=== PATIENT | male | born 1980 | race Hispanic/Latino ===

== ENCOUNTER 2024-03-19 04:13 | Emergency (ER) | payer SELFPAY ==
[2024-03-19 05:07] LABS: Absolute Basophils 0.1 K/uL (0-0.5); Absolute Monocytes 1.1 K/uL (0.1-1.3); Basophils % 0.7 % (0-1.3); Eosinophils % 0.2 % (0-4.4); Hematocrit 44.3 % (39.6-49.0); Hemoglobin 14.7 g/dL (13.6-17.9); Lymphocytes % 18.4 % (15.3-44.8); MCH 29.2 pg (27.0-35.0); MCHC 33.2 g/dL (32.0-36.0); MCV 88.1 fL (80-100); MPV 9.8 fL (7.6-11.3); Monocytes % 6.8 % (3.3-12.3); Neutrophils % 73.9 % (41.7-73.7); Nucleated Red Blood Cells % 0.1 % (0-0); Platelets 262 thou/uL (152-406); RBC Red Blood Cell Count 5.03 M/uL (4.33-5.43); Red Cell Distribution Width 14.3 % (12.1-15.2)
[2024-03-19 05:14] LABS: PT Prothrombin Time 11.3 SECONDS (9.4-12.5); PTT, Activated Partial Thromb 28.3 SECONDS (24.3-36.9); Protime INR 1.01
[2024-03-19 05:54] LABS: ALT/SGPT 56 U/L (16-61); AST/SGOT 20 U/L (15-37); Albumin 3.7 g/dL (3.4-5.0); Albumin/Globulin Ratio 1.1 (1.1-1.8); Alkaline Phosphatase 99 U/L (45-117); Anion Gap 8.8 mEq/L (5.0-15.0); BUN Blood Urea Nitrogen 11 mg/dL (7-18); Bicarbonate 28 mEq/L (21-32); Bilirubin Total 0.3 mg/dL (0.2-1.0); Globulin 3.5 g/dL (2.3-3.5); Glomerular Filtration Rate 111 ml/min (=/>90); Glucose Level 105 mg/dL (74-106); Potassium 3.8 mEq/L (3.5-5.1); Protein, Total 7.2 g/dL (6.4-8.2); Sodium Level 137 mEq/L (136-145)
[2024-03-19 05:55] LABS: Bilirubin Direct < 0.2 mg/dL (0-0.2); Bilirubin Indirect, Calculated 0.1 mg/dL (0.2-0.8)
[2024-03-19] MEDS ORDERED: MORPHINE 4 MG/ML SYR ONE (05:56)
[2024-03-19] MEDS ORDERED: ONDANSETRON 4 MG/2 ML VIAL ONE (05:56)
[2024-03-19] MEDS ORDERED: NA CHLORIDE 0.9% 1,000 ML ONE ×2 (05:57→07:27)
[2024-03-19] MEDS ORDERED: DIAZEPAM 5 MG TABLET ONE (05:57)
[2024-03-19 06:07] LABS: Sqamous Epithelial <5 /HPF (None Seen); Urine Bacteria None Seen /HPF (<20); Urine Bilirubin NEGATIVE (Negative); Urine Blood Negative (Negative); Urine Clarity Clear (Clear); Urine Color Light-Yellow (Yellow); Urine Culture Reflex Order NOT NEEDED; Urine Glucose NEGATIVE (Negative); Urine Ketones NEGATIVE (Negative); Urine Microscopic Reflex YN ORDER UMIC; Urine Mucus Slight /HPF (None Seen); Urine Nitrite NEGATIVE (Negative); Urine Protein TRACE (Negative); Urine RBC <5 /HPF (None Seen); Urine Urobilinogen Normal (Normal); Urine WBC <5 /HPF (<5); Urine pH 6.5 (5.0-7.0)
[2024-03-19 06:12] LABS: Barbiturates NEGATIVE (NEGATIVE); Benzodiazepines NEGATIVE (NEGATIVE); Cocaine POSITIVE (NEGATIVE); METHAMPHETAM NEGATIVE (NEGATIVE); Methadone NEGATIVE (NEGATIVE); Opiates NEGATIVE (NEGATIVE); Phencyclidine NEGATIVE (NEGATIVE); THC Cannibis NEGATIVE (NEGATIVE)
--- NOTE | 2024-03-19 09:51 | RAD REPORT ---
EXAM DESCRIPTION: CT - Soft Tissue Neck W/Contr - 03/19/2024 7:23 am CLINICAL HISTORY: The patient is 43 years old and is Male; hanging attempt, neck pain TECHNIQUE: Axial computed tomography images of the neck with intravenous contrast. Sagittal and c oronal reformatted images were created and reviewed. This CT exam was performed using one or more o f the following dose reduction techniques: automated exposure control, adjustment of the mA and/or kV according to patient size, and/or use of iterative reconstruction technique. COMPARISON: No relevant prior studies available. FINDINGS: Oropharynx: Unremarkable. No significant tonsillar enlargement. No peritonsillar abscess. Hypopharynx: Unremarkable. Larynx: Unremarkable. Normal epiglottis. Trachea: Unremarkable. Retropharyngeal space: Unremarkable. Submandibular/parotid glands: Unremarkable. Glands are normal in size. Thyroid: Unremarkable. No enlarged or calcified nodules. Bones/joints: No acute fracture. Soft tissues: Unremarkable. Vasculature: No acute findings. Lymph nodes: Unremarkable. No lymphadenopathy. Lung apices: Unremarkable as visualized. IMPRESSION: No acute finding. Electronically signed by: Eugene Amin MD 03/19/2024 07:11 AM CDT 8 Due to temporary technical issues with the PACS/Fluency reporting system, reports are being signed by the in house radiologist without review as a courtesy to ensure prompt reporting. The interpreting r adiologist is fully responsible for the content of the report.
--- NOTE | 2024-03-19 10:22 | RAD REPORT ---
EXAM DESCRIPTION: CT - Head C Spine Cap Wo Con - 03/19/2024 7:23 am CLINICAL HISTORY: The patient is 43 years old and is Male; hanging attempt TECHNIQUE: Axial computed tomography images of the head/brain and cervical spine without intravenous contrast. Sagittal and coronal reformatted images were created and reviewed. This CT exam was pe rformed using one or more of the following dose reduction techniques: automated exposure control, a djustment of the mA and/or kV according to patient size, and/or use of iterative reconstruction techn ique. COMPARISON: No relevant prior studies available. FINDINGS: Brain: Mild age related periventricular white matter microangiopathic changes. No hemorrhage. Ventricles: Unremarkable. No ventriculomegaly. Skull: No acute fracture. Sinuses: Unremarkable as visualized. No acute sinusitis. Mastoid air cells: Unremarkable as visualized. No mastoid fluid. Vertebrae: No acute cervical spine fracture visualized. Lateral alignment is maintained. Discs/spinal canal/neural foramina: No acute findings. No spinal canal stenosis. Soft tissues: Right parietal scalp swelling. Pleural space: No apical pneumothorax. * A single impression for all exams can be found at the end of this report EXAM DESCRIPTION: CT Chest, Abdomen and Pelvis Without Intravenous Contrast CLINICAL HISTORY: The patient is 43 years old and is Male; hanging attempt TECHNIQUE: Axial computed tomography images of the chest, abdomen and pelvis without intravenous con trast. Sagittal and coronal reformatted images were created and reviewed. This CT exam was perfor med using one or more of the following dose reduction techniques: automated exposure control, adjus tment of the mA and/or kV according to patient size, and/or use of iterative reconstruction technique . COMPARISON: No relevant prior studies available. FINDINGS: CHEST: Lungs: Dependent atelectasis in the bilateral lower lobes. Pleural space: Unremarkable. No significant effusion. No pneumothorax. Heart: Unremarkable. No cardiomegaly. No significant pericardial effusion. No significant c oronary artery calcifications. ABDOMEN: Liver: Unremarkable. Gallbladder and bile ducts: Calcified stone in the gallbladder fundus. No findings to suggest cho lecystitis. No ductal dilation. Pancreas: Unremarkable. No ductal dilation. Spleen: Unremarkable. No splenomegaly. Adrenals: Unremarkable. No mass. Kidneys and ureters: Punctate right nephrolithiasis. No hydronephrosis. Left kidney is unremarkab le. Stomach and bowel: No bowel dilatation or obstruction. No bowel wall thickening. PELVIS: Appendix: The visualized appendix is normal. No pericecal inflammation to suggest acute appendici tis. Bladder: Unremarkable. No stones. Reproductive: Unremarkable as visualized. CHEST, ABDOMEN and PELVIS: Intraperitoneal space: Unremarkable. No significant fluid collection. No free air. Bones/joints: Old left clavicle fracture. No acute sternal fracture. No sternoclavicular joint dislocation. No acute rib fracture visualized. Partial ankylosis right SI joint. No acute fracture in the pelvis or proximal femora. No hip dislocation. Bilateral L5 spondylolysis. No acute vertebral fracture visualized in the thoracic or lumbar spine. Soft tissues: Unremarkable. Vasculature: Unremarkable. No aortic aneurysm. Lymph nodes: Unremarkable. No enlarged lymph nodes. * A single impression for all exams can be found at the end of this report IMPRESSION: CT Head and Cervical Spine Without Intravenous Contrast: 1. No intracranial hemorrhage. No acute skull fracture. 2. Mild age related periventricular white matter microangiopathic changes. 3. No acute cervical spine fracture visualized. CT Chest, Abdomen and Pelvis Without Intravenous Contrast: 1. No acute intrathoracic or intra-abdominal injury identified. Study performed without IV contrast . 2. Cholelithiasis. 3. Additional non-emergent findings as above. Electronically signed by: Sita Rivera MD 03/19/2024 06:53 AM CDT [place] Due to temporary technical issues with the PACS/Fluency reporting system, reports are being signed by the in house radiologist without review as a courtesy to ensure prompt reporting. The interpreting r adiologist is fully responsible for the content of the report.
[2024-03-19] MEDS ORDERED: KETOROLAC 30 MG/ML INJ ONE (15:09)
[2024-03-19] MEDS ORDERED: HYDROCODONE/APAP 10/325 TAB ONE (20:47)
[2024-03-19] MEDS ORDERED: IBUPROFEN 400 MG TAB ONE (20:47)
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
--- NOTE | 2024-03-19 21:52 | EDPHYS ---
Physician Documentation [facility] Name: Rodríguez Mccormack Age: 43 yrs Sex: Male : 1980 Arrival Date: 03/19/2024 Time: 04:13 Bed 15 Private MD: ED Physician Jamal Armstrong HPI: 03/19 04:24 This 43 yrs old Male presents to ER via Unassigned with complaints of Suicidal sp4 Ideation, Suicide Attempt. 06:20 43-year-old male presents with EMS for acute suicide attempt via hanging. Patient sp4 reports he had some cocaine also he became upset regarding his girlfriend and he proceeded to hang himself. Patient was pulled out of the noose by his family. Patient now presents with EMS in c-collar complaining of neck pain and spinal pain. . Historical: - Allergies: 04:27 No Known Allergies; jm12 - PMHx: 04:27 Hypertensive disorder; Bipolar disorder; jm12 - Immunization history:: Adult Immunizations up to date. - Infectious Disease History:: Denies. - Social history:: Smoking status: Patient reports the use of cigarette tobacco products, smokes one pack cigarettes per day. - Family history:: not pertinent. ROS: 06:20 Constitutional: Negative for fever, chills, and weight loss, no neck pain, positive sp4 spinal pain, positive suicide attempt, positive suicide attempt via hanging 06:20 All other systems are negative, Exam: 06:20 Constitutional: This is a well developed, well nourished patient who is awake, alert, sp4 and in no acute distress. Patient arrives in c-collar. With EMS. Head/Face: Normocephalic, atraumatic. Eyes: Pupils equal round and reactive to light, extra-ocular motions intact. Lids and lashes normal. Conjunctiva and sclera are not injected. Cornea within normal limits. Periorbital areas with no swelling, redness, or edema. ENT: Nares patent. No nasal discharge, no septal abnormalities noted. Tympanic membranes are normal and external auditory canals are clear. Oropharynx with no redness, swelling, or masses, exudates, or evidence of obstruction, uvula midline. Mucous membranes moist. Neck: Trachea midline, no thyromegaly or masses palpated, and no cervical lymphadenopathy. Supple, full range of motion without nuchal rigidity, or vertebral point tenderness. Chest/axilla: Normal chest wall appearance and motion. Nontender with no deformity. No lesions are appreciated. Cardiovascular: Regular rate and rhythm with a normal S1 and S2. No gallops, murmurs, or rubs. Normal PMI, no JVD. No pulse deficits. Respiratory: Lungs have equal breath sounds bilaterally, clear to auscultation and percussion. No rales, rhonchi or wheezes noted. No increased work of breathing, no retractions or nasal flaring. Abdomen/GI: Soft, with normal bowel sounds. No distension or tympany. No guarding or rebound. No evidence of tenderness throughout. Back: No spinal tenderness. No costovertebral tenderness. Skin: Warm, dry with normal turgor. Normal color with no rashes, no lesions, and no evidence of cellulitis. MS/ Extremity: Pulses equal, no cyanosis. Neurovascular intact. Full, normal range of motion. Neuro: Awake and alert, GCS 15, oriented to person, place, time, and situation. Cranial nerves II-XII grossly intact. Motor strength 5/5 in all extremities. Sensory grossly intact. Psych: Awake, alert, with orientation to person, place and time. Behavior, mood, and affect are within normal limits 06:22 ECG was reviewed by the Attending Physician. EKG at 0 541 normal sinus rhythm with a sp4 rate of 87 normal EKG. Ventricular hypertrophy otherwise normal Vital Signs: 04:24 BP 177 / 111; Pulse 98; Resp 14; Temp 98.2; Pulse Ox 100% ; Height 5 ft. 3 in. ; Pain jm12 03/05; 04:30 Weight 72.57 kg; jm12 15:17 BP 133 / 85; Pulse 90; Resp 18 S; Temp 97.7(O); Pulse Ox 100% on R/A; Pain 04/05; kc6 19:00 BP 128 / 79; Pulse 88; Resp 17; Pulse Ox 99% ; jj7 03/20 12:19 BP 151 / 108; Pulse 95; Resp 18; Pulse Ox 98% on R/A; kj2 19:20 BP 152 / 92; Pulse 76; Resp 17 S; Pulse Ox 98% on R/A; sa1 20:00 Temp 97.8(T); ha1 03/21 07:44 BP 145 / 84; Pulse 70; Resp 17; Pulse Ox 99% on R/A; rs5 14:51 BP 147 / 81; Pulse 73; Resp 17; Pulse Ox 99% on R/A; rs5 03/19 04:24 Pain Scale: Adult jm12 15:17 Pain Scale: Adult kc6 Chase Coma Score: 03/19 06:20 Eye Response: spontaneous(4). Motor Response: obeys commands(6). Verbal Response: sp4 oriented(5). Total: 15. MDM: 04:26 Patient medically screened. sp4 06:27 Differential diagnosis: drug withdrawal. acute psychotic break, depression, psychosis sp4 secondary to non-compliance, Acute suicide attempt, acute depression. Data reviewed: vital signs, nurses notes, lab test result(s), EKG, radiologic studies, CT scan. Consideration of Admission/Observation Escalation of care including admission/observation considered. Transition of care: After a detail discussion of the patient's case, care is transferred to Miky Duke MD. ED course: Patient has involved himself into a significant suicide attempt. Warrants transfer to psychiatric hospital for acute psychiatric management.. 21:54 ED course: EXAM: CT Neck With Intravenous Contrast CLINICAL HISTORY: The patient is 43 sp4 years old and is Male; hanging attempt, neck pain TECHNIQUE: Axial computed tomography images of the neck with intravenous contrast. Sagittal and coronal reformatted images were created and reviewed. This CT exam was performed using one or more of the following dose reduction techniques: automated exposure control, adjustment of the mA and/or kV according to patient size, and/or use of iterative reconstruction technique. COMPARISON: No relevant prior studies available. FINDINGS: Oropharynx: Unremarkable. No significant tonsillar enlargement. No peritonsillar abscess. Hypopharynx: Unremarkable. Larynx: Unremarkable. Normal epiglottis. Trachea: Unremarkable. Retropharyngeal space: Unremarkable. Submandibular/parotid glands: Unremarkable. Glands are normal in size. Thyroid: Unremarkable. No enlarged or calcified nodules. Bones/joints: No acute fracture. Soft tissues: Unremarkable. Vasculature: No acute findings. Lymph nodes: Unremarkable. No lymphadenopathy. Lung apices: Unremarkable as visualized. IMPRESSION: No acute finding. . ED course: CT - CHEST, ABDOMEN and PELVIS: Intraperitoneal space: Unremarkable. No significant fluid collection. No free air. Bones/joints: Old left clavicle fracture. No acute sternal fracture. No sternoclavicular joint dislocation. No acute rib fracture visualized. Partial ankylosis right SI joint. No acute fracture in the pelvis or proximal femora. No hip dislocation. Bilateral L5 spondylolysis. No acute vertebral fracture visualized in the thoracic or lumbar spine. Soft tissues: Unremarkable. Vasculature: Unremarkable. No aortic aneurysm. Lymph nodes: Unremarkable. No enlarged lymph nodes. * A single impression for all exams can be found at the end of this report IMPRESSION: CT Head and Cervical Spine Without Intravenous Contrast: 1. No intracranial hemorrhage. No acute skull fracture. 2. Mild age related periventricular white matter microangiopathic changes. 3. No acute cervical spine fracture visualized. CT Chest, Abdomen and Pelvis Without Intravenous Contrast: 1. No acute intrathoracic or intra-abdominal injury identified. Study performed without IV contrast. 2. Cholelithiasis. 3. Additional non-emergent findings as above. Electronically signed by: Sita Rivera MD 03/19/2024 06:53 AM CDT RP. 03/21 14:56 ED course: Patient presented to the ED for suicide attempt via hanging. The patient was rt brought in on an emergency [facility] order. The emergency [facility] order . Patient expressed desire to leave. I discussed with the patient as well as his . I do believe patient would best be served in an inpatient psychiatric setting, however, I have no legal recourse to keep the patient her longer against as well. I informed patient of these recommendations and tried to convince him to stay. Patient still desires to leave. The patient's will be with him during this time. Either the patient or his will call 911 or bring the patient back to the emergency department should any change develop in his condition. Patient does have outpatient appointment set up with [facility] for this coming week.. 03/19 04:26 Order name: Acetaminophen; Complete Time: 06:06 sp4 03/19 04:26 Order name: Basic Metabolic Panel; Complete Time: 06:06 sp4 03/19 04:26 Order name: CBC with Diff; Complete Time: 05:20 sp4 03/19 04:26 Order name: ETOH Level; Complete Time: 06:06 4 03/19 04:26 Order name: Hepatic Function; Complete Time: 06:06 4 03/19 04:26 Order name: PT-INR; Complete Time: 05:20 03/19 04:26 Order name: Ptt, Activated; Complete Time: 05:20 4 03/19 04:26 Order name: Salicylate; Complete Time: 06:06 4 03/19 04:26 Order name: Urinalysis w/ reflexes; Complete Time: 07:07 03/19 04:26 Order name: Urine Drug Screen; Complete Time: 07:07 03/19 04:25 Order name: CT Soft Tissue Neck W/contr 03/19 04:25 Order name: CT Traumagram (Head C Spine CAP wo con); Complete Time: 14:56 03/19 04:26 Order name: EKG - Nurse/Tech; Complete Time: 06:27 4 03/19 04:26 Order name: IV Saline Lock; Complete Time: 05:01 03/19 04:26 Order name: Labs collected and sent; Complete Time: 05:01 03/19 04:26 Order name: Suicide Precautions; Complete Time: 05:38 03/19 04:26 Order name: Suicide Screening ([place]); Complete Time: 05:38 EC/24 06:22 Rate is 87 beats/min. Rhythm is regular, Normal Sinus Rhythm. QRS Dillon is Normal. LA sp4 interval is normal. QRS interval is normal. QT interval is normal. No Q waves. T waves are Normal. No ST changes noted. Clinical impression: No evidence of ischemia. Interpreted by me. Reviewed by me. Administered Medications: 06:03 Drug: Diazepam PO 10 mg PO once Route: PO; jm12 07:32 Follow up: Response: No adverse reaction; RASS: Alert and Calm (0) kc6 06:04 Drug: NS 0.9% IV 1000 ml IV at 1 bolus Per protocol; 1000 mL bolus Route: IV; Rate: 1 jm12 bolus; Site: left forearm; 07:32 Follow up: Response: No adverse reaction; IV Status: Completed infusion; IV Intake: kc6 1000ml 06:04 Drug: morphine IVP or IV 4 mg IVP once over 4 mins Route: IVP; Infused Over: 4 mins; jm12 Site: right forearm; 07:32 Follow up: Response: No adverse reaction; Pain is decreased; RASS: Alert and Calm (0) kc6 06:04 Drug: Ondansetron IVP 4 mg IVP once; over 2 minutes Route: IVP; Site: right femoral; jm12 07:32 Follow up: Response: No adverse reaction kc6 07:31 Drug: NS 0.9% IV 1000 ml IV at 1 bolus Per protocol; 1000 mL bolus Route: IV; Rate: 1 kc6 bolus; Site: right forearm; 10:18 Follow up: Response: No adverse reaction; IV Status: Completed infusion; IV Intake: kc6 1000ml 15:17 Drug: Ketorolac IVP 30 mg IVP once Route: IVP; Site: right forearm; kc6 16:00 Follow up: Response: No adverse reaction; Pain is decreased kc6 20:52 Drug: [place] PO 10 mg-325 mg 1 tabs PO once Route: PO; jj7 22:56 Follow up: Response: Marked relief of symptoms jj7 20:52 Drug: Ibuprofen PO 800 mg PO once Route: PO; jj7 22:56 Follow up: Response: Marked relief of symptoms; Pain is decreased jj7 22:24 Drug: Ativan IVP 1 mg IVP once Route: IVP; Site: right forearm; jj7 22:57 Follow up: Response: Marked relief of symptoms jj7 22:56 Drug: Nicoderm CQ Transdermal Patch 21 mg/24 hr 1 patches Transdermal once Route: jj7 Transdermal; Site: affected area; 03/20 08:54 Follow up: Response: No adverse reaction ll1 13:14 Drug: Ibuprofen PO 800 mg PO once Route: PO; kj2 19:00 Follow up: Response: No adverse reaction ha1 20:23 Drug: Nicotine Transdermal Patch 21 mg/24 hr 1 patches Transdermal once {Note: right ha1 upper arm .} Route: Transdermal; Site: affected area; 20:34 Follow up: Response: No adverse reaction ha1 22:43 Drug: Ibuprofen PO 600 mg PO once Route: PO; ha1 23:10 Follow up: Response: No adverse reaction; Marked relief of symptoms ha1 22:43 Drug: Cyclobenzaprine PO 5 mg PO once Route: PO; ha1 23:10 Follow up: Response: No adverse reaction; Marked relief of symptoms ha1 03/21 14:29 Drug: Ibuprofen PO 800 mg PO once Route: PO; rs5 14:52 Follow up: Response: No adverse reaction rs5 Disposition Summary: 03/21/24 14:55 Discharge Ordered Notes: Location: Home rt Problem: new(03/21/24 14:55) rt Symptoms: have improved(03/21/24 14:55) rt Condition: Stable(03/21/24 14:55) rt Diagnosis - Suicide attempt(03/21/24 14:55) rt Followup: rt - With: Private Physician - When: 2 - 3 days - Reason: Followup: rt - With: Emergency Department - When: As needed - Reason: Worsening of condition Discharge Instructions: - Discharge Summary Sheet rt - Suicidal Feelings: How to Help Yourself rt Forms: - Medication Reconciliation Form rt - Antibiotic Education rt - Prescription Opioid Use rt - Patient Portal Instructions rt - Leadership Thank You Letter rt Signatures: Dispatcher [employer] EDMS Miky Duke MD MD cha Bryson, James, RN RN jb4 Brandi Hobbs RN RN vc1 Reva Collier RN RN ha1 Amanda Reinoso RN RN kc6 Jerardo Infante RN RN jj7 Jamal Armstrong MD MD rt Raulito Hong, RN RN rs5 Armond Francois MD MD sp4 Bev Mcnally, KENJI RN kj2 Keira Mireles RN RN jm12 Lopez Malcolm RN ll1 Corrections: (The following items were deleted from the chart) 03/19 04:27 04:26 ACETAMINOPHEN+C.LAB.BRZ ordered. EDMS EDMS 04:27 04:26 BASIC METABOLIC PANEL+C.LAB.BRZ ordered. EDMS EDMS 04: 04:26 CBC+H.LAB.BRZ ordered. EDMS EDMS 04: 04:26 ETHANOL+C.LAB.BRZ ordered. EDMS EDMS 04:27 04:26 HEPATIC FUNCTION+C.LAB.BRZ ordered. EDMS EDMS 04: 04:26 PROTIME (+INR)+COAG.LAB.BRZ ordered. EDMS EDMS 04: 04:26 PTT, ACTIVATED+COAG.LAB.BRZ ordered. EDMS EDMS 04:27 04:26 SALICYLATE+C.LAB.BRZ ordered. EDMS EDMS 04: 04:26 Urinalysis+U.LAB.BRZ ordered. EDMS EDMS 04:27 04:26 URINE DRUG SCREEN+UC.LAB.BRZ ordered. EDMS EDMS 21:56 21:52 Transfer pending facility acceptance vc1 sp4 03/21 14:55 03/19 21:52 Psych Facility vc1 rt 03/21 14:55 03/19 21:52 Higher level of care vc1 rt 03/21 14:55 03/19 21:52 Stable vc1 rt 03/21 14:55 03/19 21:52 Suicide attempt vc1 rt 03/21 14:55 03/19 21:52 Suicidal ideations vc1 rt 03/21 14:55 03/19 21:56 Transfer pending facility acceptance sp4 rt 03/21 14:55 03/19 21:56 an acute exacerbation sp4 rt 03/21 14:55 03/19 21:56 have improved sp4 rt 03/21 14:55 03/19 21:56 Suicide attempt via hanging, acute neck pain sp4 rt
[2024-03-19] MEDS ORDERED: LORazepam 2 MG/ML VIAL ONE (22:18)
[2024-03-19] MEDS ORDERED: NICOTINE 21 MG/PAT TD ONE (22:47)
[2024-03-20] MEDS ORDERED: IBUPROFEN 400 MG TAB ONE ×2 (13:11→22:36)
--- NOTE | 2024-03-20 13:20 | EKG ---
Test Date: 2024-03-19 Test Time: 05:41:01 Tailor Garment Fitter: JAYLON MEASUREMENT RESULTS: Intervals: Rate: 87 UT: 188 QRSD: 96 QT: 392 QTc: 471 [place]: P: 63 UT: 188 QRS: 25 T: 37 INTERPRETIVE STATEMENTS: Normal sinus rhythm Voltage criteria for left ventricular hypertrophy Abnormal ECG No previous ECG available for comparison Electronically Signed On 03-20-24 13:15:10 CDT by Wei Lopez
[2024-03-20] MEDS ORDERED: NICOTINE 21 MG/PAT TD ONE (19:19)
[2024-03-20] MEDS ORDERED: CYCLOBENZAPRINE 10 MG TAB ONE (22:36)
[2024-03-20] MEDS ORDERED: IBUPROFEN 200 MG TAB PO ONE (22:36)
[2024-03-21] MEDS ORDERED: IBUPROFEN 400 MG TAB ONE (13:27)
[2024-03-21 16:09] VITALS: TEMP 98
[2024-03-21 16:10] VITALS: BP 125/71; O2SAT 97
== END 2024-03-21 15:01 | disposition home or self-care (01) ==
LOC: ER 04:13
DX: T14.91XA Suicide attempt, initial encounter (principal); X83.8XXA Intentional self-harm by other specified means, initial encounter; I10 Essential (primary) hypertension; F31.9 Bipolar disorder, unspecified
CPT/HCPCS: 36415; 70450; 70491; 71250; 72125; 80048; 80076; 80143; 80179; 80307; 81001; 82077; 85025; 85610; 85730; 93005; 99285; J2405; J7030; Q9967